=== PATIENT | male | born 1995 | race Caucasian/White ===

== ENCOUNTER 2017-01-04 01:47 | Emergency (ER) | payer OTHER ==
[~2017-01-04 01:47] MED LIST: HALOPERIDOL LACTATE 5 MG/ML 1 ML VIAL ONE; LORAZEPAM 2 MG/ML 1 ML VIAL ONE
[2017-01-04 01:52] VITALS: TEMP 37.8
[2017-01-04] MEDS ORDERED: HALOPERIDOL LACTATE 5 MG/ML 1 ML VIAL IM STA (01:53)
[2017-01-04] MEDS ORDERED: LORAZEPAM 2 MG/ML 1 ML VIAL IM STA (01:53)
[2017-01-04 02:47] VITALS: O2SAT 94
[2017-01-04 02:56] LABS: BLOOD UREA NITROGEN 11 mg/dl (7-18); BUN/CREATININE RATIO 8.2 (10-20); CALCIUM 8.5 mg/dl (8.5-10.1); CARBON DIOXIDE 22 mmol/L (21-32); CHLORIDE 104 mmol/L (98-107); GLUCOSE 112 mg/dl (70-99); POTASSIUM 3.4 mmol/L (3.5-5.1); SODIUM 140 mmol/L (136-145)
[2017-01-04 08:03] VITALS: BP 113/61; PULSE 71; O2SAT 98
--- NOTE | 2017-01-04 08:14 | EMERGENCY ROOM VISIT NOTE ---
ED Visit Note First contact with patient: 07:20 The patient was signed out to me at shift change by Jonna Ward PA-C. please see her dictation for additional details. Briefly, the patient was brought to the emergency department in handcuffs. He had been drinking alcohol. The patient was very combative with staff and had to be chemically restrained. The patient was closely monitored for 6.5 hours. I reevaluated the patient. At this time, he is cooperative. He is awake, alert and oriented. He denies any pain or complaints. He denies any medical problems, medications daily or allergies to medications. We did receive a note from police to contact them when the patient will be discharged and he will be taken to skilled nursing. VITALS: Vitals are noted on the nurse's note and reviewed by myself. Vital signs stable. GENERAL: This is a 21-year-old male, in no acute distress, nondiaphoretic, well- developed well-nourished. SKIN: The skin was without rashes, erythema, edema, or bruising. There is no tenting of the skin. Capillary reflex less than 2 seconds. HEAD: Normocephalic atraumatic. EARS: External auditory canals clear, tympanic membranes pearly mcnulty without erythema or effusion bilaterally. EYES: Pupils equal round and reactive to light and accommodation. Conjunctivae without injection, sclerae without icterus. Extraocular movements intact. NOSE: Patent, turbinates without inflammation or discharge. No sinus tenderness. MOUTH: Mucous membranes moist. Tonsils are not enlarged. Pharynx without erythema or exudate. Uvula midline. Airway patent. Tongue does not deviate. NECK: Supple without nuchal rigidity. No lymphadenopathy. No thyromegaly. Cervical spine is nontender. No JVD. HEART: Regular rate and rhythm without murmurs gallops or rubs. LUNGS: Clear to auscultation bilaterally without wheezes, rales or rhonchi. No retractions or accessory muscle use. ABDOMEN: Positive bowel sounds x 4. Soft, nontender, without masses or organomegaly. MUSCULOSKELETAL: No muscle atrophy, erythema, or edema noted. Full range of motion in all extremities. No tenderness to palpation. Strength 5/5 throughout. NEURO: Patient was alert and oriented to person place and time. No focal neurological deficits. The patient was very cooperative on my examination. The police were contacted and he was discharged in the custody of police.
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
== END 2017-01-04 08:30 | disposition home or self-care (01) ==
LOC: C.EDA 01:49
DX: F10.129 Alcohol abuse with intoxication, unspecified (principal); F91.9 Conduct disorder, unspecified